=== PATIENT | female | born 1965 | race Caucasian/White ===

== ENCOUNTER 2019-09-22 16:39 | Inpatient (IN) | payer BC, MEDICAID ==
[~2019-09-22] VITALS: Ht 180.3 cm; Wt 70.3 kg
[2019-09-22 16:42] VITALS: BP_SYST 93
--- NOTE | 2019-09-22 16:45 | NUR ---
# 20 gauge angiocath placed to LAC Use of asceptic technique. Opsite placed over site. Blood return noted. Blood for lab drawn from site. Flushed with 10 cc of normal saline. No evidence of infiltration noted. Patient tolerated well.
--- NOTE | 2019-09-22 16:45 | NUR ---
Patient to ER bed 07 to gown for evaluation. Side rails up.
--- NOTE | 2019-09-22 16:47 | NUR ---
Pt brought by ambulance , A&Ox4, pt presents to ER with R buttocks pressure ulcer and headache, pt arrived with sitter since patient is on 51/50 hold at [employer], afebrile, skin pink and warm, cap refill <3, VSS, respirations even and unlabored.
--- NOTE | 2019-09-22 17:00 | NUR ---
Rosangela Valenzuela at bedside examining patient
--- NOTE | 2019-09-22 17:25 | NUR ---
urine obtained via straight cath. Sample sent to lab.
[2019-09-22 17:39] LABS: EOSINOPHILS # (AUTO) 0.1 K/uL (0.0-0.4); EOSINOPHILS % (AUTO) 1.6 % (0.0-4.0); HEMATOCRIT 31.7 % (36-48); HEMOGLOBIN 10.8 g/dL (12.0-16.0); LYMPHOCYTES # (AUTO) 1.4 K/uL (1.0-5.5); MEAN CORPUSCULAR HEMOGLOBIN 34 pg (27-31); MEAN CORPUSCULAR HGB CONC 34 % (32-36); MEAN CORPUSCULAR VOLUME 100 fL (79.0-98.0); MONOCYTES # (AUTO) 0.3 K/uL (0.0-1.0); MONOCYTES % (AUTO) 8.9 % (1.7-9.3); NEUTROPHILS # (AUTO) 1.7 K/uL (1.8-7.7); NEUTROPHILS % (AUTO) 48.5 % (40.0-70.0); PLATELET COUNT (AUTO) 113 K/uL (130-430); RED BLOOD CELL COUNT(AUTO) 3.16 MIL/uL (4.2-6.2); RED CELL DISTRIBUTION WIDTH 15.4 % (9.0-15.0); WHITE BLOOD COUNT (AUTO) 3.5 K/uL (4.8-10.8)
--- NOTE | 2019-09-22 17:40 | NUR ---
Pt requesting something to eat, food given to patient, agreeable
[2019-09-22 17:46] LABS: BILIRUBIN,URINE NEGATIVE (NEGATIVE); BLOOD, URINE NEGATIVE (NEGATIVE); CLARITY/URINE CLEAR (CLEAR); COLOR,URINE YELLOW (YELLOW); GLUCOSE,URINE NEGATIVE (NEGATIVE); KETONES,URINE TRACE (NEGATIVE); LEUKOCYTE ESTERASE ,URINE NEGATIVE (NEGATIVE); NITRITE, URINE NEGATIVE (NEGATIVE); PROTEIN URINE NEGATIVE (NEGATIVE)
[2019-09-22 17:48] LABS: CALCIUM 8.6 mg/dL (8.4-11.0); CREATININE 0.88 mg/dL (0.55-1.30); POTASSIUM 4.2 mmol/L (3.5-5.1)
[2019-09-22 17:53] LABS: BACTERIA,URINE None Seen /HPF (None Seen); RBC,URINE NONE SEEN /HPF (0-3); WBC,URINE NONE SEEN /HPF (0-3)
[2019-09-22 17:54] LABS: ALBUMIN 2.6 g/dL (3.4-4.8); TOTAL BILIRUBIN 0.1 mg/dL (0.0-1.0)
[2019-09-22 17:54] LABS: MUCUS,URINE 1+ /LPF (None Seen)
[2019-09-22] MEDS ORDERED: ACET325T53 PO ×2 (17:57)
[2019-09-22] MEDS ORDERED: A VITE PO (17:57)
[2019-09-22] MEDS ORDERED: BETA PO (17:57)
[2019-09-22] MEDS ORDERED: LEVO100V IV (17:57)
[2019-09-22] MEDS ORDERED: CAT.1 PO (17:57)
[2019-09-22] MEDS ORDERED: ESCI20TA PO (17:57)
[2019-09-22] MEDS ORDERED: BUSP10TA3 PO (17:57)
[2019-09-22] MEDS ORDERED: TRAZ-219 PO (17:57)
[2019-09-22] MEDS ORDERED: CHLO25CA10 PO (17:57)
[2019-09-22] MEDS ORDERED: MAG-151 PO (17:57)
[2019-09-22] MEDS ORDERED: IBUP-1968 PO (17:57)
[2019-09-22] MEDS ORDERED: FOLI-43 PO (17:57)
[2019-09-22] MEDS ORDERED: MELO15TA13 PO (17:57)
[2019-09-22] MEDS ORDERED: NEOM1OIN TP (17:57)
[2019-09-22] MEDS ORDERED: SULF1TAB48 PO (17:57)
[2019-09-22] MEDS ORDERED: MAGN800O PO (17:57)
[2019-09-22] MEDS ORDERED: CEPH-568 PO (17:57)
[2019-09-22] MEDS ORDERED: LIB25 PO ×2 (17:57)
[2019-09-22] MEDS ORDERED: VITA1CAP PO (17:57)
[2019-09-22] MEDS ORDERED: PHE25 PO (17:57)
[2019-09-22] MEDS ORDERED: LEVO175T7 PO (17:57)
[2019-09-22] MEDS ORDERED: MONT10TA25 PO (17:57)
--- NOTE | 2019-09-22 17:57 | NUR ---
Medication reconciliation completed with information provided by patient . Any prior medication reconciliation on file was reviewed and corrected.
--- NOTE | 2019-09-22 18:23 | NUR ---
Patient will be admitted to care of Dr Martinez . Admitted to Medsurg unit. Will go to room 121A . Belongings list completed. Complete and up to date summary report printed. SBAR report to be given at bedside with opportunity for questions.
--- NOTE | 2019-09-22 19:15 | NUR ---
ADMISSION: The patient, KATHY STRANGE, 54 y/o, F admitted by MINERVA VIVAS MD, was given written information regarding hospital policies, unit procedures and contact persons. Valuables were checked and .
--- NOTE | 2019-09-22 19:16 | NUR ---
OPENING NOTE RECEIVED CARE OF PT AND SBAR REPORT. PT IS AAOX4, RESTING IN BED, NO S/S OF ACUTE DISTRESS. BREATHING IS UNLABORED TO ROOM AIR. PT IS ON 5150 HOLD, PT HAS SITTER FOR DIRECT OBSERVATION. ROOM SAFETY CHECK DONE. PT APPEARS COMFORTABLE AT THIS TIME. SAFETY AND FALL PRECAUTIONS ARE IN PLACE. PT WILL BE CLOSELY MONITORED THROUGHOUT SHIFT. SITTER WILL REMAIN AT BEDSIDE.
[2019-09-22 20:00] VITALS: BP_SYST 117
[2019-09-22] MEDS ORDERED: VANCOMYCIN HCL 1,500 MG in NS 250 ML IV ONE (20:00)
[2019-09-22 20:09] VITALS: BP_SYST 117
[2019-09-22] MEDS ORDERED: VANCOMYCIN HCL 500 MG/VIAL IV ONE (20:19)
[2019-09-22] MEDS ORDERED: VANCOMYCIN HCL 1000 MG/VIAL IV ONE (20:19)
--- NOTE | 2019-09-22 20:37 | NUR ---
VANCO SCHEDULED VANCOMYCIN ADMINISTERED. NO S/S OF ADVERSE REACTION.
--- NOTE | 2019-09-22 20:46 | NUR ---
PAGED PAGED DR. VIVAS FOR ORDERS, SPOKE WITH BREN
--- NOTE | 2019-09-22 21:00 | NUR ---
SPOKE TO DR. VIVAS REGARDING PT'S REPORT OF PAIN. NEW ORDERS RECEIVED. WILL CARRY OUT.
[2019-09-22] MEDS: traMADol HCL HCL 50 MG TABLET (ULTRAM) PO PRN (21:40)
--- NOTE | 2019-09-22 21:40 | NUR ---
PAIN/ULTRAM PT GIVEN ULTRAM 50 MG PO FOR REPORT OF SEVERE PAIN. MEDICATION AND POTENTIAL SIDE EFFECTS DISCUSSED, PT VERBALIZED UNDERSTANDING. SAFETY PRECAUTIONS MAINTAINED. SITTER IS AT BEDSIDE. WILL MONITOR.
[2019-09-22] MEDS ORDERED: IBUPROFEN 400 MG TABLET PO SCH (22:30)
[2019-09-22] MEDS ORDERED: traZODone HCL 50 MG TABLET (DESYREL) PO PRN (22:30)
[2019-09-22] MEDS ORDERED: chlordiazePOXIDE HCL 25 MG CAPSULE PO SCH ×3 (22:30)
[2019-09-22] MEDS ORDERED: ACETAMINOPHEN 325 MG TABLET PO PRN ×2 (22:30)
[2019-09-22] MEDS ORDERED: ESCITALOPRAM OXALATE 10 MG TABLET PO SCH (22:30)
[2019-09-22] MEDS ORDERED: CITALOPRAM HYDROBROMIDE 20 MG TABLET PO SCH (23:00)
[2019-09-22] MEDS ORDERED: busPIRone HCL 5 MG TABLET PO SCH (23:00)
--- NOTE | 2019-09-22 23:08 | NUR ---
MEDICATION PASS SCHEDULED CELEXA AND BUSPAR ADMINISTERED. MEDICATIONS DISCUSSED WITH PT, PT VERBALIZED UNDERSTANDING. NO S/S OF DISTRESS. SAFETY PRECAUTIONS REMAIN IN PLACE, SITTER IS AT BEDSIDE. WILL MONITOR.
--- NOTE | 2019-09-23 00:02 | NUR ---
CONSULTATION PAGED/CALLED Reason for Consultation: WOUND DEBRIDEMENT Person Who was Notified: ABIDA Consulting Physician: DR. LUNDY Ordering Physician: DR. VIVAS
--- NOTE | 2019-09-23 00:13 | NUR ---
CONSULTATION PAGED/CALLED Reason for Consultation: DEPRESSION & 51/50 HOLD Person Who was Notified: WILY Consulting Physician: DR. LUNA Ordering Physician: DR. VIVAS FAXED FACESHEET TO DR. LUNA'S OFFICE f)[phone]
[2019-09-23 00:19] VITALS: BP_SYST 102
--- NOTE | 2019-09-23 02:12 | NUR ---
DR. WEBSTER ROUNDS DR. WEBSTER AT NURSES STATION
--- NOTE | 2019-09-23 04:25 | NUR ---
SLEEPING PT RESTING IN BED WITH EYES CLOSED. VISIBLE SYMMETRICAL RISE AND FALL OF CHEST TO ROOM AIR. AUDIBLE BREATHING. NO S/S OF ACUTE DISTRESS. PT APPEARS COMFORTABLE AT THIS TIME. SAFETY PRECAUTIONS ARE IN PLACE. SITTER IS AT BEDSIDE. WILL MONITOR.
--- NOTE | 2019-09-23 05:07 | NUR ---
CONSULTATION PAGED/CALLED Reason for Consultation: PRESSURE ULCER Person Who was Notified: DR. PASTOR WEBSTER Consulting Physician: DR. PASTOR WEBSTER Ordering Physician: DR. VIVAS
--- NOTE | 2019-09-23 06:39 | NUR ---
CLOSING NOTE PT IS AAOX4, RESTING IN BED, NO S/S OF ACUTE DISTRESS. BREATHING IS UNLABORED TO ROOM AIR. PT IS ON 5150 HOLD, PT HAS SITTER FOR DIRECT OBSERVATION. ROOM SAFETY CHECK DONE. PT APPEARS COMFORTABLE AT THIS TIME. SAFETY AND FALL PRECAUTIONS ARE IN PLACE. PT HAS BEEN MONITORED THROUGHOUT SHIFT. ALL NEEDS MET. WILL ENDORSE TO DAY SHIFT RN.
--- NOTE | 2019-09-23 08:00 | NUR ---
Opening notes, Received pt in bed, pt is aaox4, denies pain, no sob, no resp distress. vitals wnl. Safety precaution in place. Sitter at bedside sor suicide watch, pt however denies and suicide ideation and has no plans for suicide at this time. Still waiting for clearance from Psychologist.
[2019-09-23 08:10] VITALS: BP_SYST 109
[2019-09-23] MEDS ORDERED: FOLIC ACID 1 MG TABLET PO SCH (09:00)
[2019-09-23] MEDS ORDERED: MELOXICAM 7.5 MG TABLET PO SCH (09:00)
[2019-09-23] MEDS ORDERED: MONTELUKAST 10 MG TABLET PO SCH (09:00)
[2019-09-23] MEDS ORDERED: VITAMIN B COMPLEX 1 CAP/TAB PO SCH (09:00)
[2019-09-23] MEDS ORDERED: CEPHALEXIN 500 MG CAPSULE PO SCH (09:00)
[2019-09-23] MEDS ORDERED: CITALOPRAM HYDROBROMIDE 20 MG TABLET PO SCH (09:00)
[2019-09-23] MEDS: VANCOMYCIN HCL 1,000 MG in NS 250 ML IV SCH ×2 (09:32→22:02)
[2019-09-23] MEDS: busPIRone HCL 5 MG TABLET PO SCH ×2 (09:32→20:12)
--- NOTE | 2019-09-23 10:00 | NUR ---
Pt in bed, no sob, no resp distress. sitter at bedside.
--- NOTE | 2019-09-23 11:15 | NUR ---
WOUND EVALUATION: Wound Consult received from Dr. Abelino Ayala. Thank you, Dr. Ayala, for the consult. Patient received in a [place] Bed with a mattress, awake, alert, and oriented. Patient is unable to turn independently. Kojo Score is a 19. Past Medical History: Thyroid Disease, Depression, Rhabdomyolysis, Cholecystectomy, , Gastric Bypass. Recent Labs: WBC 3.5, RBC 3.16, hemoglobin 10.8, hematocrit 31.7, platelets 113, BUN 13, creatinine 0.88, GFR 71, glucose 102, serum total protein 5.6, albumin 2.6. Microbiology: Blood culture results 2 in progress. Urine culture results in progress. Right buttock wound culture results in progress. MRSA screen results in progress. Intrinsic factors that delay wound healing: Hypoalbuminemia. Extrinsic factors that delay wound healing: Decreased mobility. Wound Assessment: 1. Right buttock: Unstageable pressure ulcer, present on admission. Wound bed has 80% yellow slough, 20% red tissue. Mild odor, no drainage. Periwound is erythematous. Undermining present from 4-5 o'clock measuring 0.2 cm. Area underneath slough appears soft upon palpation. Surrounding tissue has blanchable erythema. Wound measures 4.0 cm x 4.4 cm x 0.5 cm. Recommend: Cleanse wound with normal saline. Apply moisture barrier cream to hanna-wound. Apply Venelex ointment to wound bed. Cover with foam dressing. Perform wound care daily, and as needed for dressing soiling or dislodgement. 2. Buttocks: Blanchable erythema, present on admission. 3. Sacral area: Blanchable erythema, present on admission. 4. Bilateral proximal posterior thighs: Blanchable erythema, present on admission. Recommend: Cleanse involved areas with mild soap and water. Pat dry. Apply moisture barrier cream to involved areas. Perform site care qid, and as needed for soiling. 5. Left Heel: Blanchable erythema, present on admission. 6. Right Heel: Blanchable erythema, present on admission. Recommend: Elevate, offload and float bilateral heels with one pillow lengthwise under each extremity at all times. Also recommend: Encourage and assist patient as needed with repositioning [id number] only every 2 hours with pillow support and off-load pressure areas with pillows for pressure re-distribution. Elevate, offload and float bilateral heels with one pillow lengthwise under each extremity at all times. Perform skin care and monitor skin integrity Q shift. Use moisture barrier cream on buttocks and other moisture susceptible areas QID and as needed for soiling. Initiate low air-loss therapy.
--- NOTE | 2019-09-23 12:00 | NUR ---
pt in bed, no c/o pain, no sob, no c/o pain. sitter at bedside for safety.
--- NOTE | 2019-09-23 12:09 | NUR ---
DC PLANNING: RECEIVED A CALL FROM LANCE ( DEO @ [facility]) @ [place] [facility] STATING THEY ARE PLANNING TO TRANSFER THE PATIENT IN NETWORK. WILL POSSIBLY TRY FIRST, [facility] IF NO BED WILL TRY THERE OTHER HOSPITAL [facility] OR [facility]. DR. VIVAS MADE AWARE. Addendum: 09/23/19 at 1458 by Laxmi Cha RN SPOKE WITH LANCE (DEO @ [facility]), PATIENT IS TRANSFERRING TO [facility]. ADDRESS: [facility] [place] [address] ACCEPTING MD: MOOSE BAH CURRENTLY WAITING FOR BED. DUE TO PATIENT WILL BE NEEDING SITTER, BED POSSIBLY BE AVAILABLE AT CHANGE OF SHIFT. TRANSPORTATION TO USE IS [facility] AUTH: [id number] Addendum: 09/23/19 at 1510 by Laxmi Cha RN TRANSPORTATION HAS BEEN PLACED ON WILL CALL WITH [facility] @ .
[2019-09-23 12:40] VITALS: BP_SYST 114
[2019-09-23] MEDS: traMADol HCL HCL 50 MG TABLET (ULTRAM) PO PRN ×2 (13:06→22:57)
[2019-09-23] MEDS ORDERED: BALSAM PERU/CASTOR OIL 60 GM OINT...G. TP ONE (14:00)
--- NOTE | 2019-09-23 14:00 | NUR ---
no sob, no c/o pain. sitter at bedside for safety.
[2019-09-23 16:00] VITALS: BP_SYST 113
--- NOTE | 2019-09-23 17:00 | NUR ---
Dr Cruz was here and seen and spoke with pt re surgery, [facility] later I received a call from Pegger Laxmi telling me that pt will be transferred to [facility] ) tonight or as soon as the bed is available. I was told also that pt does not need surgery. Dr Cruz was paged and informed about the transfer plan for the patient.
--- NOTE | 2019-09-23 17:26 | NUR ---
Spoke to Dr. Thomas regarding the order to transfer to [facility] , Ok to transfer as long as they accepted the patient and will continue the care , including sitter ,patient has [address] in [place] the was .
--- NOTE | 2019-09-23 19:30 | NUR ---
CHANGE OF SHIFT: pt. alert, awake, oriented when checked with sitter at bedside. no c/o discomfort at this time. pt. aware of being transferred to [facility], [facility] helper time is 9 pm.
--- NOTE | 2019-09-23 20:00 | NUR ---
NOTES: VS checked. IV lock on rt wrist, kepp patent, flushing good. rt. buttock dressing intact. moves all extremities. sitter at bedside.
--- NOTE | 2019-09-23 20:32 | NUR ---
NOTES: called report to [facility] with nurse Andrews
[2019-09-23 20:44] VITALS: BP_SYST 112
--- NOTE | 2019-09-23 23:05 | NUR ---
DISCHARGE NOTES: report given to [facility] EMT. IV antibiotic stopped. pain medication given with Tramadol for /o rt. buttock wound. kept IV lock on transfer. discharge in stable condition. nurse Mandy from [facility] aware of expires and pt. just need a sitter. charge nurse Andrew aware as well.
[2019-09-24] MEDS ORDERED: BALSAM PERU/CASTOR OIL 60 GM OINT...G. TP SCH (09:00)
--- NOTE | 2019-09-24 17:07 | NUR ---
RECEIVED +CULTURE FROM LAB, DISCUSSED CASE WITH DR TURPIN, PT IS INPATIENT AT [facility] IN [place], CALLED AND SPOKE WITH YOLY FINNEY. GIVEN FAX NUMBER AND REPORT SENT
== END 2019-09-23 23:05 | disposition short-term general hospital (02) | DRG 603 ==
LOC: SED 16:39 → SMU 18:23
PROVIDERS: ADMIT Family Medicine; ATTEND Family Medicine
DX: L03.317 Cellulitis of buttock (principal); L03.115 Cellulitis of right lower limb; M62.82 Rhabdomyolysis; I96 Gangrene, not elsewhere classified; E03.9 Hypothyroidism, unspecified; L89.90 Pressure ulcer of unspecified site, unspecified stage; I10 Essential (primary) hypertension; J45.909 Unspecified asthma, uncomplicated; L89.319 Pressure ulcer of right buttock, unspecified stage; F32.9 Major depressive disorder, single episode, unspecified; Z88.1 Allergy status to other antibiotic agents; Z98.84 Bariatric surgery status; Z88.2 Allergy status to sulfonamides; Z79.899 Other long term (current) drug therapy; Z90.49 Acquired absence of other specified parts of digestive tract
CPT/HCPCS: 36415; 80053; 81000-TC; 83605; 85025; 87040-TC; 87070-TC; 87081; 87086; 87186-TC; 99285; J3370; J7050